=== PATIENT | male | born 1950 | race Caucasian/White ===

== ENCOUNTER 2017-06-22 19:06 | Inpatient (IN) | payer OTHER ==
[~2017-06-22] VITALS: Ht 188 cm; Wt 125.0 kg
[2017-06-22 19:15] VITALS: BP 132/60; PULSE 85; RESP 20; TEMP 103.6; O2SAT 100
[2017-06-22 19:30] VITALS: RESP 22; O2SAT 100
[2017-06-22] MEDS ORDERED: SODIUM CHLORID 0.9% 500 ML INJ 500 ML IV ONE (19:30)
[2017-06-22] MEDS ORDERED: ONDANSETRON HCL 4 MG/2 ML VIAL IV PUSH ONE (19:30)
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
--- NOTE | 2017-06-22 20:13 | RADRPT ---
EXAM DATE/TIME: 06/22/2017 19:46 [facility] COMPARISON: No previous studies available for comparison. INDICATIONS : Short of breath. MEDICAL HISTORY : None. SURGICAL HISTORY : None. ENCOUNTER: Initial ACUITY: 1 day PAIN SCORE: 0/10 LOCATION: Bilateral chest FINDINGS: Suspected mild infiltrate in the right upper lobe. Lungs otherwise appear reasonably clear. No pleura l effusion demonstrated. No pneumothorax. Heart size within normal limits. Patient has had previous median sternotomy and CABG. CONCLUSION: Suspected early or mild right upper lobe infiltrate in the proper clinical setting. Rusty Garcia MD on June 22, 2017 at 20:11 Board Certified Radiologist. This report was verified electronically.
[2017-06-22 20:28] LABS: AUTOMATED NEUTROPHIL # 6.6 TH/MM3 (1.8-7.7); BASOPHIL % 0.1 % (0.0-2.0); EOSINOPHIL % 0.1 % (0.0-4.0); HEMATOCRIT 39.7 % (39.0-51.0); HEMO FLAGS DIFF FINAL; LYMPH % 6.2 % (9.0-44.0); LYMPHOCYTE # 0.5 TH/MM3 (1.0-4.8); MEAN CELL VOLUME 91.9 FL (80.0-100.0); MEAN CORPUSCULAR HEMOGLOBIN 30.6 PG (27.0-34.0); MEAN CORPUSCULAR HGB CONC 33.3 % (32.0-36.0); MONO % 10.8 % (0.0-8.0); NEUT % 82.8 % (16.0-70.0); PLATELET COUNT 104 TH/MM3 (150-450); RED BLOOD COUNT 4.32 MIL/MM3 (4.50-5.90); RED CELL DISTRIBUTION WIDTH 13.8 % (11.6-17.2)
[2017-06-22 20:31] LABS: APTT (PATIENT) 31.1 SEC (24.3-30.1); INTERNATIONAL NORMALIZED RATIO 1.1 RATIO; PROTHROMBIN TIME - PATIENT 12.6 SEC (9.8-11.6)
[2017-06-22 20:41] LABS: ALT (GPT) 41 U/L (12-78); ANION GAP 9 MEQ/L (5-15); AST (GOT) 58 U/L (15-37); BICARBONATE 22.6 MEQ/L (21.0-32.0); BLOOD UREA NITROGEN 9 MG/DL (7-18); CHLORIDE 107 MEQ/L (98-107); GLOMERULAR FILTRATION RATE 112 ML/MIN (>89); MAGNESIUM 1.5 MG/DL (1.5-2.5); POTASSIUM 3.8 MEQ/L (3.5-5.1); SODIUM (NA) 139 MEQ/L (136-145)
[2017-06-22] MEDS ORDERED: AZTREONAM INJ 2,000 MG in SODIUM CHLORIDE 0.9% INJ 100 ML IV ONE (20:45)
[2017-06-22] MEDS ORDERED: metroNIDAZOLE 500 MG INJ 100 ML IV ONE (20:45)
[2017-06-22] MEDS ORDERED: VANCOMYCIN INJ 1,000 MG in SODIUM CHLOR 0.9% 250 ML INJ 250 ML IV ONE (20:45)
[2017-06-22 20:50] LABS: ACETAMINOPHEN LESS THAN 2.0 MCG/ML (10.0-30.0); ALKALINE PHOSPHATASE 123 U/L (45-117); TOTAL BILIRUBIN ADULT 0.5 MG/DL (0.2-1.0)
[2017-06-22 20:54] LABS: ALCOHOL LESS THAN 3 MG/DL (0-5); CREATINE KINASE 100 U/L (39-308)
--- NOTE | 2017-06-22 21:07 | RADRPT ---
EXAM DATE/TIME: 06/22/2017 20:46 [facility] COMPARISON: No previous studies available for comparison. INDICATIONS : Altered mental status, found with generator running. RADIATION DOSE: 69.15 CTDIvol (mGy) MEDICAL HISTORY : Cardiovascular disease. A-fib SURGICAL HISTORY : CABG ENCOUNTER: Initial ACUITY: 1 day PAIN SCALE: 0/10 LOCATION: cranial TECHNIQUE: Multiple contiguous axial images were obtained of the head. Using automated exposure control and adj ustment of the mA and/or kV according to patient size, radiation dose was kept as low as reasonably a chievable to obtain optimal diagnostic quality images. DICOM format image data is available electro nically for review and comparison. FINDINGS: CEREBRUM: The ventricles are normal for age. No evidence of midline shift, mass lesion, hemorrhage or acute in farction. No extra-axial fluid collections are seen. POSTERIOR FOSSA: The cerebellum and brainstem are intact. The 4th ventricle is midline. The cerebellopontine angle i s unremarkable. EXTRACRANIAL: The visualized portion of the orbits is intact. SKULL: The calvaria is intact. No evidence of skull fracture. CONCLUSION: Negative noncontrast head CT. Rusty Garcia MD on June 22, 2017 at 21:05 Board Certified Radiologist. This report was verified electronically.
[2017-06-22] MEDS ORDERED: SODIUM CHLOR 0.9% 1000 ML INJ 1,000 ML IV ONE (21:15)
[2017-06-22] MEDS ORDERED: ACETAMINOPHEN 325 MG TAB PO ONE (21:15)
[2017-06-22] MEDS ORDERED: LACTULOSE SYRUP 20 GM/30 ML CUP PO ONE (21:30)
[2017-06-22] MEDS ORDERED: NALOXONE HCL 0.4 MG/ML AMP IV PRN (21:30)
[2017-06-22] MEDS ORDERED: Vancomycin Consult Pharmacy 1 EA OTHER SCH (21:30)
[2017-06-22 21:42] LABS: BLOOD GAS BASE EXCESS -1.9 mmol/L (-2-2); BLOOD GAS CARBOXYHEMOGLOBIN 3.4 % (0-4); BLOOD GAS HCO3 22 mmol/L (22-26); BLOOD GAS METHEMOGLOBIN 0.7 % (0-2); BLOOD GAS O2 HGB SATURATION 96 % (90-100); BLOOD GAS OXYGEN CONTENT 18.1 Vol % (12.0-20.0); BLOOD GAS PCO2 33 mmHg (38-42); BLOOD GAS PO2 225 mmHG (61-120); BLOOD GAS TOTAL HGB 13.1 G/DL (12.0-16.0); TEMP CORR TO 98.6
[2017-06-22 21:43] LABS: CRITICAL VALUE NO; DRAW SITE RT RADIAL; LITER FLOW 15 L/M; NUMBER OF ARTERIAL PUNCTURES 1; OXYGEN DEVICE NONREB MASK; STAT YES; ULNAR PULSE PRESENT
[2017-06-22] MEDS ORDERED: VANCOMYCIN 1,500 MG/NS 500 ML IV ONE ×2 (22:00)
[2017-06-22 22:12] LABS: LACTIC ACID GHOST NOT REPORTABLE
[2017-06-22 22:40] VITALS: BP 116/55; PULSE 65; TEMP 99.7; O2SAT 96
[2017-06-23] MEDS ORDERED: MORPHINE SULFATE 2 MG/ML INJ IV PUSH PRN
[2017-06-23] MEDS ORDERED: PERC10TA27 PO (00:07)
[2017-06-23] MEDS ORDERED: CARAFATE (00:07)
[2017-06-23] MEDS ORDERED: DILATIN (00:07)
[2017-06-23 00:16] VITALS: BP 116/53; PULSE 63; RESP 20; TEMP 100; O2SAT 95
--- NOTE | 2017-06-23 00:48 | HHI.HP ---
[facility] Unknown Admission Diagnosis Febrile Illness, hepatic encephalopathy, sepsis, pneumonia Diagnoses: Travel History International Travel<30 Days: No Contact w/Intl Traveler <30 Da: No Traveled to Known Affected Are: No History of Present Illness History from patient, physician to medication, and review of medical records. Patient reports that he . He stated he was having some nausea and vomiting as well. He called his friend because of this. When the friend arrived, patient was having active vomiting and also did have diarrhea about once or twice. The friend got worried and therefore called 911. He states that he did not have any urinary burning or pain on urination. Denies any blood in his urine or stool. He reports the diarrhea was just once or twice and only today. Not several days. He denies any chest pain/palpitations/shortness of breath/dizziness/syncopal episodes. In the emergency room, it was initially thought that patient may have, nontoxic poisoning. However his ABG proved otherwise. Patient states that he did have carbon monoxide generator in the outdoors and open air. Review of Systems Except as stated in HPI: all other systems reviewed are Neg Past Family Social History Past Medical History Hypertension Diabetes CAD status post CABG Atrial fibrillation Hyperlipidemia Chronic back pain Past Surgical History CABG Back surgeries 3 Reported Medications Medications listed in EMRreviewed. Patient states he did go through with nursing staff. Allergies: Coded Allergies: Penicillins (Verified Allergy, Unknown, 06/22/17) shellfish derived (Verified Allergy, Unknown, 06/22/17) Family History dm, heart problems in the family Social History Denies smoking/alcohol abuse/drug abuse. Physical Exam Vital Signs Vital Signs Date Time Temp Pulse Resp B/P (MAP) Pulse Ox O2 Delivery O2 Flow Rate FiO2 06/23/17 00:16 100.0 63 20 116/53 (74) 95 06/22/17 22:40 99.7 65 116/55 (75) 96 Nasal Cannula 2.00 06/22/17 19:30 22 100 Non-Rebreather 15.00 06/22/17 19:26 72 20 100 Non-Rebreather 06/22/17 19:15 103.6 85 20 132/60 (84) 100 Physical Exam GENERAL: This is a well-nourished, well-developed patient, in no apparent distress. SKIN: No rashes, ecchymoses or lesions. Cool and dry. HEAD: Atraumatic. Normocephalic. No temporal or scalp tenderness. EYES: No scleral icterus. No injection or drainage. ENT: Nose without bleeding, purulent drainage or septal hematoma. Airway patent. NECK: Trachea midline. No JVD CARDIOVASCULAR: Regular rate and rhythm without murmurs, gallops, or rubs. RESPIRATORY: Clear to auscultation. Breath sounds equal bilaterally. No wheezes , rales, or rhonchi. GASTROINTESTINAL: Abdomen soft, non-tender, nondistended. No guarding. MUSCULOSKELETAL: Extremities without clubbing, cyanosis, or edema. No calf tenderness. NEUROLOGICAL: Awake and alert. Motor and sensory grossly within normal limits. Normal speech. Laboratory Laboratory Tests Test 06/22/17 19:20 06/22/17 19:30 06/22/17 19:50 06/22/17 22:30 Lactic Acid Level 3.1 2.3 Ammonia 50 White Blood Count 8.0 Red Blood Count 4.32 Hemoglobin 13.2 Hematocrit 39.7 Mean Corpuscular Volume 91.9 Mean Corpuscular Hemoglobin 30.6 Mean Corpuscular Hemoglobin Concent 33.3 Red Cell Distribution Width 13.8 Platelet Count 104 Mean Platelet Volume 10.3 Neutrophils (%) (Auto) 82.8 Lymphocytes (%) (Auto) 6.2 Monocytes (%) (Auto) 10.8 Eosinophils (%) (Auto) 0.1 Basophils (%) (Auto) 0.1 Neutrophils # (Auto) 6.6 Lymphocytes # (Auto) 0.5 Monocytes # (Auto) 0.9 Eosinophils # (Auto) 0.0 Basophils # (Auto) 0.0 CBC Comment DIFF FINAL Differential Comment Prothrombin Time 12.6 Prothromb Time International Ratio 1.1 Activated Partial Thromboplast Time 31.1 Blood Urea Nitrogen 9 Creatinine 0.62 Random Glucose 182 Total Protein 6.6 Albumin 2.6 Calcium Level 8.3 Magnesium Level 1.5 Alkaline Phosphatase 123 Aspartate Amino Transf (AST/SGOT) 58 Alanine Aminotransferase (ALT/SGPT) 41 Total Bilirubin 0.5 Sodium Level 139 Potassium Level 3.8 Chloride Level 107 Carbon Dioxide Level 22.6 Anion Gap 9 Estimat Glomerular Filtration Rate 112 Total Creatine Kinase 100 Troponin I LESS THAN 0.02 C-Reactive Protein 0.71 B-Type Natriuretic Peptide 150 Lipase 230 Thyroid Stimulating Hormone 3rd Gen 0.713 Salicylates Level LESS THAN 1.7 Acetaminophen Level LESS THAN 2.0 Ethyl Alcohol Level LESS THAN 3 Blood Gas Puncture Site RT RADIAL Blood Gas Patient Temperature 98.6 Blood Gas HCO3 22 Blood Gas Base Excess -1.9 Blood Gas Oxygen Saturation 96 Arterial Blood pH 7.43 Arterial Blood Partial Pressure CO2 33 Arterial Blood Partial Pressure O2 225 Arterial Blood Oxygen Content 18.1 Arterial Blood Carboxyhemoglobin 3.4 Arterial Blood Methemoglobin 0.7 Blood Gas Hemoglobin 13.1 Oxygen Delivery Device NONREB MASK Blood Gas Liter Flow 15 Date/Time Source Procedure Growth Status 06/22/17 19:35 Blood Peripheral Aerobic Blood Culture Pending Received 06/22/17 19:35 Blood Peripheral Anaerobic Blood Culture Pending Received Result Diagram: 06/22/17192906/22/171929 Imaging Last [address] 06/22/171925 Signed Impressions: Service Date/Time: Thursday, June 22, 2017 20:46 - CONCLUSION: Negative noncontrast head CT. Rusty Garcia MD Chest X-Ray 06/22/171925 Signed Impressions: Service Date/Time: Thursday, June 22, 2017 19:46 - CONCLUSION: Suspected early or mild right upper lobe infiltrate in the proper clinical setting. MD Jose Clearyi VTE Risk Assessment Caprini VTE Risk Assessment: Mod/High Risk (score >= 2) Caprini Risk Assessment Model Point Value = 1 Point Value = 2 Point Value = 3 Point Value = 5 Age 41-60 Minor surgery BMI > 25 kg/m2 Swollen legs Varicose veins or History of unexplained or recurrent spontaneous Oral contraceptives or hormone replacement Sepsis (< 1 month) Serious lung disease, including pneumonia (< 1 month) Abnormal pulmonary function Acute myocardial infarction Congestive heart failure (< 1 month) History of inflammatory bowel disease Medical patient at bed rest Age 61-74 Arthroscopic surgery Major open surgery (> 45 min) Laparoscopic surgery (> 45 min) Malignancy Confined to bed (> 72 hours) Immobilizing plaster cast Central venous access Age >= 75 History of VTE Family history of VTE Factor V Leiden Prothrombin [id number] Lupus anticoagulant Anticardiolipin antibodies Elevated serum homocysteine Heparin-induced thrombocytopenia Other congenital or acquired thrombophilia Stroke (< 1 month) Elective arthroplasty Hip, pelvis, or leg fracture Acute spinal cord injury (< 1 month) Prophylaxis Regimen Total Risk Factor Score Risk Level Prophylaxis Regimen 0-1 Low Early ambulation 2 Moderate Order ONE of the following: *Sequential Compression Device (SCD) *Heparin 5000 units SQ BID 3-4 Higher Order ONE of the following medications: *Heparin 5000 units SQ TID *Enoxaparin/Lovenox 40 mg SQ daily (WT < 150 kg, CrCl > 30 mL/min) *Enoxaparin/Lovenox 30 mg SQ daily (WT < 150 kg, CrCl > 10-29 mL/min) *Enoxaparin/Lovenox 30 mg SQ BID (WT < 150 kg, CrCl > 30 mL/min) AND/OR *Sequential Compression Device (SCD) 5 or more Highest Order ONE of the following medications: *Heparin 5000 units SQ TID (Preferred with Epidurals) *Enoxaparin/Lovenox 40 mg SQ daily (WT < 150 kg, CrCl > 30 mL/min) *Enoxaparin/Lovenox 30 mg SQ daily (WT < 150 kg, CrCl > 10-29 mL/min) *Enoxaparin/Lovenox 30 mg SQ BID (WT < 150 kg, CrCl > 30 mL/min) AND *Sequential Compression Device (SCD) Assessment and Plan Assessment and Plan Impression: Gastritis/enteritis- infectious Viral versus pneumonia Fever Suspected bacteremia Thrombocytopenia Lactic acid acidosis Plan: IV hydration. We'll follow blood culture results. Continue vancomycin and Azactam until cultures are resulted and will tailored to sensitivity and identity. [facility] Again, there is no evidence of carbon monoxide poisoning. His lethargy is secondary to infection. DVT prophylaxiswith SCD . GI prophylaxis, SCDs. Discussed Condition With ;patient, ER MD, pt's nurse Physician Certification 2 Midnight Certification Type: Admission for Inpatient Services Order for Inpatient Services The services are ordered in accordance with Medicare regulations or non- Medicare payer requirements, as applicable. In the case of services not specified as inpatient-only, they are appropriately provided as inpatient services in accordance with the 2-midnight benchmark. Estimated LOS (days): 3 days is the estimated time the patient will need to remain in the hospital, assuming treatment plan goals are met and no additional complications. Post-Hospital Plan: Home Saturnino Walker MD Jun 23, 2017 00:48
[2017-06-23] MEDS ORDERED: ACETAMINOPHEN 325 MG TAB PO PRN (01:00)
[2017-06-23] MEDS: MORPHINE SULFATE 4 MG/ML INJ IV PUSH PRN ×7 (01:02→22:44)
[2017-06-23 04:00] VITALS: TEMP 100.4
[2017-06-23] MEDS: VANCOMYCIN INJ 1,600 MG in SODIUM CHLORID 0.9% 500 ML INJ 500 ML IV SCH ×3 (05:19→22:44)
[2017-06-23 08:00] VITALS: BP 116/56; PULSE 61; RESP 18; TEMP 98.8; O2SAT 95
[2017-06-23 08:09] LABS: AUTOMATED NEUTROPHIL # 5.8 TH/MM3 (1.8-7.7); BASOPHIL % 0.2 % (0.0-2.0); EOSINOPHIL % 0.1 % (0.0-4.0); HEMATOCRIT 36.1 % (39.0-51.0); LYMPHOCYTE # 1.3 TH/MM3 (1.0-4.8); MEAN CELL VOLUME 91.4 FL (80.0-100.0); MONO % 11.2 % (0.0-8.0); NEUT % 72.5 % (16.0-70.0); PLATELET COUNT 83 TH/MM3 (150-450); RED BLOOD COUNT 3.95 MIL/MM3 (4.50-5.90); RED CELL DISTRIBUTION WIDTH 14.3 % (11.6-17.2)
[2017-06-23 08:14] LABS: HEMO FLAGS AUTO DIFF
[2017-06-23 08:34] LABS: BICARBONATE 24.6 MEQ/L (21.0-32.0); POTASSIUM 3.5 MEQ/L (3.5-5.1)
[2017-06-23 08:52] LABS: PLATELET ESTIMATE SMEAR LOW (NORMAL); PLATELET MORPHOLOGY NORMAL (NORMAL); SCAN/DIFF AUTO DIFF CONFIRMED
[2017-06-23] MEDS: AZTREONAM INJ 2,000 MG in SODIUM CHLORIDE 0.9% INJ 100 ML IV SCH ×2 (09:06→19:43)
[2017-06-23] MEDS: SODIUM CHLORIDE 0.9% FLUSH 10 ML FLUSH IV FLUSH SCH ×2 (09:06→19:42)
[2017-06-23] MEDS: SODIUM CHLORIDE 0.9% FLUSH 10 ML FLUSH IV FLUSH PRN ×2 (09:47→12:44)
[2017-06-23 12:00] VITALS: BP 125/69; PULSE 64; RESP 17; TEMP 98.9; O2SAT 95
[2017-06-23] MEDS ORDERED: MORP1TAB25 PO (13:18)
[2017-06-23] MEDS ORDERED: NITR0.4S SL (13:19)
[2017-06-23] MEDS ORDERED: METO25TA3 PO (13:20)
[2017-06-23] MEDS ORDERED: FURO20TA PO (13:21)
[2017-06-23] MEDS ORDERED: FLUO20CA12 PO (13:21)
[2017-06-23] MEDS ORDERED: PRAV40TA2 PO (13:24)
[2017-06-23] MEDS ORDERED: PRAM0.5T PO (13:24)
[2017-06-23] MEDS ORDERED: GLIP10TA6 PO (13:26)
[2017-06-23] MEDS ORDERED: SUCR1TAB PO (13:27)
[2017-06-23 16:00] VITALS: BP 158/66; PULSE 56; RESP 17; TEMP 97.5; O2SAT 95
[2017-06-23] MEDS ORDERED: SODIUM CHLOR 0.9% 1000 ML INJ 1,000 ML IV SCH (17:00)
--- NOTE | 2017-06-23 17:01 | HHI.PR ---
Subjective Remarks Patient denied any cough or short of breath He does have tenderness in his left lower extremity with redness, he stated he has been getting cellulitis in it since he had heart surgery Questionable dysuria, will check UA, it was ordered from ED but hasn't been out yet Objective Vitals Vital Signs Date Time Temp Pulse Resp B/P (MAP) Pulse Ox O2 Delivery O2 Flow Rate FiO2 06/23/17 16:00 97.5 56 17 158/66 (96) 95 06/23/17 12:48 18 06/23/17 12:00 98.9 64 17 125/69 (87) 95 06/23/17 08:00 98.8 61 18 116/56 (76) 95 06/23/17 04:00 100.4 06/23/17 00:16 100.0 63 20 116/53 (74) 95 06/22/17 22:40 99.7 65 116/55 (75) 96 Nasal Cannula 2.00 06/22/17 19:30 22 100 Non-Rebreather 15.00 06/22/17 19:26 72 20 100 Non-Rebreather 06/22/17 19:15 103.6 85 20 132/60 (84) 100 I/O 06/22/17 06/22/17 06/22/17 06/23/17 06/23/17 06/23/17 07:00 15:00 23:00 07:00 15:00 23:00 Intake Total 500 ml 240 ml Output Total 300 ml Balance 500 ml -60 ml Intake Oral 240 ml IV Total 500 ml Output Urine Total 300 ml # Bowel Movements 0 Result Diagram: 06/23/17 0744 06/23/17 0744 Objective Remarks GENERAL: This is a well-nourished, well-developed patient, in no apparent distress. SKIN: No rashes, warm and dry HEAD: Atraumatic. Normocephalic. EYES: Pupils equal round and reactive. Extraocular motions intact. No scleral icterus. ENT: Nose without bleeding, or drainage, Airway patent. NECK: Trachea midline. Supple CARDIOVASCULAR: Regular rate and rhythm without murmurs, gallops, or rubs. RESPIRATORY: Fair air entry bilaterally. No wheezes, rales, or rhonchi. GASTROINTESTINAL: Abdomen soft, non-tender, nondistended. Positive bowel sounds MUSCULOSKELETAL: Left lower extremity with tenderness, redness and warmth, I marked the redness NEUROLOGICAL: Awake and alert. Moves all extremity. Normal speech.no focal neurological deficit A/P Assessment and Plan Febrile illness max 103.6, then 100.4 with left shift without leukocytosis, chest x-ray showed right basilar haziness rule out pneumonia versus bilateral gastroenteritis versus cellulitis Suspect left lower extremity cellulitis Suspected bacteremia Thrombocytopenia Lactic acid acidosis> level today pending Plan: We'll continue with 500 cc of normal saline at 60 cc/h follow blood culture results. Ordered UA Continue vancomycin and Azactam until cultures are resulted and will tailored to sensitivity and identity. Monitor erythema and tenderness on the left lower extremity [facility]. DVT prophylaxiswith SCD Ronna Uriostegui MD Jun 23, 2017 17:01
[2017-06-23] MEDS ORDERED: Vancomycin Consult Pharmacy 1 EA OTHER SCH (17:15)
[2017-06-23 18:49] LABS: BACTERIA, URINE OCC /hpf; BLOOD, URINE NEG (NEG); COMMENT (UR) CULT NOT INDICATED; CULTURE IF INDICATED CULT NOT INDICATED; GLUCOSE,URINE NEG (NEG); KETONE, URINE NEG (NEG); MUCUS URINE FEW /lpf (OCC); NITRITE,URINE NEG (NEG); SQUAMOUS EPITHELIAL CELL URINE 1 /hpf (0-5); URINE COLOR YELLOW (YELLW/STRAW)
[2017-06-23 20:00] VITALS: BP 144/71; PULSE 50; PULSE 51; RESP 19; TEMP 95.8; O2SAT 99
[2017-06-23] MEDS: SUCRALFATE 1 GM TAB PO SCH (20:58)
[2017-06-23] MEDS: PRAMIPEXOLE DIHYDROCHLORIDE 0.25 MG TAB PO SCH (20:58)
[2017-06-23] MEDS: FLUoxetine HCL 20 MG CAP PO SCH (20:58)
[2017-06-23] MEDS: oxyCODONE/ACETAMINOPHEN 10 MG/325 MG TAB PO PRN (20:59)
--- NOTE | 2017-06-23 21:36 | EKG ---
Date Performed: 06/22/2017 Time Performed: 19:16:29 PTAGE: 89 years EKG: Sinus rhythm INCOMPLETE RIGHT BUNDLE BRANCH BLOCK NONSPECIFIC T-WAVE ABNORMALITY BORDERLINE ECG NO PREVIOUS TRACING DOCTOR: Monica Partida Interpretating Date/Time 06/23/2017 21:35:50
[2017-06-24] VITALS: BP 123/70; PULSE 68; RESP 17; TEMP 96; O2SAT 100
[2017-06-24] MEDS: oxyCODONE/ACETAMINOPHEN 10 MG/325 MG TAB PO PRN ×6 (00:54→23:48)
[2017-06-24] MEDS: MORPHINE SULFATE 4 MG/ML INJ IV PUSH PRN ×6 (01:44→16:24)
[2017-06-24] MEDS: VANCOMYCIN INJ 1,600 MG in SODIUM CHLORID 0.9% 500 ML INJ 500 ML IV SCH ×3 (05:52→21:52)
[2017-06-24 08:00] VITALS: BP 157/70; PULSE 53; RESP 18; TEMP 97.7; O2SAT 94
[2017-06-24] MEDS: AZTREONAM INJ 2,000 MG in SODIUM CHLORIDE 0.9% INJ 100 ML IV SCH (08:03)
[2017-06-24] MEDS: FLUoxetine HCL 20 MG CAP PO SCH ×2 (08:03→19:44)
[2017-06-24] MEDS: SODIUM CHLORIDE 0.9% FLUSH 10 ML FLUSH IV FLUSH SCH ×2 (08:03→19:46)
[2017-06-24] MEDS: SUCRALFATE 1 GM TAB PO SCH ×4 (08:03→19:44)
[2017-06-24 09:31] LABS: AUTOMATED NEUTROPHIL # 4.1 TH/MM3 (1.8-7.7); BASOPHIL % 0.4 % (0.0-2.0); EOSINOPHIL # 0.3 TH/MM3 (0-0.4); EOSINOPHIL % 4.2 % (0.0-4.0); HEMATOCRIT 37.6 % (39.0-51.0); LYMPH % 20.6 % (9.0-44.0); LYMPHOCYTE # 1.3 TH/MM3 (1.0-4.8); MEAN CELL VOLUME 92.1 FL (80.0-100.0); MEAN CORPUSCULAR HEMOGLOBIN 31.4 PG (27.0-34.0); MEAN CORPUSCULAR HGB CONC 34.1 % (32.0-36.0); MONO % 10.7 % (0.0-8.0); NEUT % 64.1 % (16.0-70.0); PLATELET COUNT 77 TH/MM3 (150-450); RED BLOOD COUNT 4.09 MIL/MM3 (4.50-5.90); WHITE BLOOD COUNT 6.3 TH/MM3 (4.0-11.0)
[2017-06-24 09:38] LABS: HEMO FLAGS AUTO DIFF
[2017-06-24 09:47] LABS: BICARBONATE 23.2 MEQ/L (21.0-32.0); POTASSIUM 3.4 MEQ/L (3.5-5.1)
[2017-06-24] MEDS: ONDANSETRON HCL 4 MG/2 ML VIAL IV PUSH PRN ×3 (10:23→23:48)
[2017-06-24 10:38] LABS: SCAN/DIFF AUTO DIFF CONFIRMED
[2017-06-24 12:00] VITALS: BP 148/69; PULSE 58; RESP 18; TEMP 98.1; O2SAT 95
[2017-06-24] MEDS ORDERED: PHARMACY ORDERED LAB ONE (13:45)
--- NOTE | 2017-06-24 18:57 | HHI.PR ---
Subjective Remarks Patient reported feeling nauseous when he started to eat today, complain of severe back pain and that he needs his morphine 30 mg 3 times a day No cough or fever, no phlegm production, no clinical signs of pneumonia Left lower extremity warmth and redness improved since yesterday, patient is on Vanco Rocephin and Zithromax Objective Vitals Vital Signs Date Time Temp Pulse Resp B/P (MAP) Pulse Ox O2 Delivery O2 Flow Rate FiO2 06/24/17 12:00 98.1 58 18 148/69 (95) 95 06/24/17 08:00 97.7 53 18 157/70 (99) 94 06/24/17 05:58 18 06/24/17 05:51 18 06/24/17 00:00 96.0 68 17 123/70 (87) 100 06/23/17 20:00 95.8 51 19 144/71 (95) 99 06/23/17 20:00 50 I/O 06/23/17 06/23/17 06/23/17 06/24/17 06/24/17 06/24/17 07:00 15:00 23:00 07:00 15:00 23:00 Intake Total 240 ml 736 ml 756 ml 616 ml 120 ml Output Total 300 ml 700 ml 350 ml 225 ml Balance -60 ml 36 ml 406 ml 616 ml -105 ml Intake Oral 240 ml 120 ml 240 ml 120 ml IV Total 616 ml 516 ml 616 ml Output Urine Total 300 ml 700 ml 350 ml 225 ml # Bowel Movements 0 2 0 Result Diagram: 06/24/1790606/24/17906 Objective Remarks GENERAL: This is a well-nourished, well-developed patient, in no apparent distress. SKIN: No rashes, warm and dry HEAD: Atraumatic. Normocephalic. EYES: Pupils equal round and reactive. Extraocular motions intact. No scleral icterus. ENT: Nose without bleeding, or drainage, Airway patent. NECK: Trachea midline. Supple CARDIOVASCULAR: Regular rate and rhythm without murmurs, gallops, or rubs. RESPIRATORY: Fair air entry bilaterally. No wheezes, rales, or rhonchi. GASTROINTESTINAL: Abdomen soft, non-tender, nondistended. Positive bowel sounds MUSCULOSKELETAL: Left lower extremity with tenderness, redness and warmth, the marked redness looks better today NEUROLOGICAL: Awake and alert. Moves all extremity. Normal speech.no focal neurological deficit A/P Assessment and Plan Febrile illness max 103.6, then 100.4 with left shift without leukocytosis, chest x-ray showed right basilar haziness rule out pneumonia versus bilateral gastroenteritis versus cellulitis Suspect left lower extremity cellulitis Suspected bacteremia Thrombocytopenia, with mild increased PT and PTT> unknown reason possible underlying chronic ITP, rule out DIC Lactic acid acidosis> level today pending DVT prophylaxis, SCD due to thrombocytopenia Plan: DC Vanco and Azactam, start clindamycin iv, monitor blood culture no growth so far. Negative UA Monitor erythema and tenderness on the left lower extremity Will do workup for thrombus cytopenia rule out DIC> fibrinogen, fibrin degradation level, d-dimer, CBC in a.m., Also check urine Legionella and pneumococcus antigen [facility]. DVT prophylaxiswith SCD Discharge Planning Home with by mouth antibiotics in a.m. if all the workup is negative Ronna Uriostegui MD Jun 24, 2017 18:57
[2017-06-24] MEDS: PRAVASTATIN SOD 40 MG TAB PO SCH (19:45)
[2017-06-24] MEDS: PRAMIPEXOLE DIHYDROCHLORIDE 0.25 MG TAB PO SCH (19:45)
[2017-06-24 20:00] VITALS: BP 174/81; PULSE 57; RESP 20; TEMP 96.1; O2SAT 96
[2017-06-24] MEDS: CLINDAMYCIN INJ 600 MG in SODIUM CHLORIDE 0.9% INJ 100 ML IV SCH (21:00)
--- NOTE | 2017-06-24 21:44 | RADRPT ---
EXAM DATE/TIME: 06/24/2017 21:20 [facility] COMPARISON: CHEST SINGLE AP, June 22, 2017, 19:46. INDICATIONS : Evaluate for pneumonia. MEDICAL HISTORY : None. SURGICAL HISTORY : CABG. ENCOUNTER: Subsequent ACUITY: 2 days PAIN SCORE: 0/10 LOCATION: Bilateral chest FINDINGS: Still possibly some faint infiltrate in the right upper lobe. Otherwise lungs are clear. No pleural e ffusion or pneumothorax. CONCLUSION: Still faintly opacified right upper lobe. Rusty Garcia MD on June 24, 2017 at 21:42 Board Certified Radiologist. This report was verified electronically.
[2017-06-24] MEDS: MORPHINE SULFATE 30 MG TAB PO SCH (23:00)
[2017-06-25] VITALS: BP 150/68; PULSE 54; RESP 19; TEMP 98.5; O2SAT 93
[2017-06-25] MEDS: MORPHINE SULFATE 4 MG/ML INJ IV PUSH PRN ×4 (01:35→18:26)
[2017-06-25] MEDS: CLINDAMYCIN INJ 600 MG in SODIUM CHLORIDE 0.9% INJ 100 ML IV SCH ×2 (03:42→09:27)
[2017-06-25] MEDS: oxyCODONE/ACETAMINOPHEN 10 MG/325 MG TAB PO PRN ×5 (03:44→22:10)
[2017-06-25 03:53] LABS: BASOPHIL % 0.4 % (0.0-2.0); EOSINOPHIL # 0.3 TH/MM3 (0-0.4); EOSINOPHIL % 4.2 % (0.0-4.0); HEMATOCRIT 36.6 % (39.0-51.0); LYMPH % 24.1 % (9.0-44.0); LYMPHOCYTE # 1.6 TH/MM3 (1.0-4.8); MEAN CORPUSCULAR HEMOGLOBIN 30.7 PG (27.0-34.0); MEAN CORPUSCULAR HGB CONC 33.4 % (32.0-36.0); MONO % 9.3 % (0.0-8.0); PLATELET COUNT 89 TH/MM3 (150-450); RED BLOOD COUNT 3.98 MIL/MM3 (4.50-5.90); WHITE BLOOD COUNT 6.4 TH/MM3 (4.0-11.0)
[2017-06-25 03:55] LABS: HEMO FLAGS AUTO DIFF
[2017-06-25 04:00] VITALS: BP 147/74; PULSE 63; RESP 20; TEMP 97.3; O2SAT 92
[2017-06-25 04:01] LABS: PLATELET ESTIMATE SMEAR LOW (NORMAL); PLATELET MORPHOLOGY NORMAL (NORMAL); SCAN/DIFF AUTO DIFF CONFIRMED
[2017-06-25] MEDS: MORPHINE SULFATE 30 MG TAB PO SCH ×3 (04:05→22:06)
[2017-06-25] MEDS: VANCOMYCIN INJ 1,600 MG in SODIUM CHLORID 0.9% 500 ML INJ 500 ML IV SCH ×2 (05:52→13:30)
[2017-06-25 08:00] VITALS: BP 156/73; PULSE 65; RESP 17; TEMP 96.8; O2SAT 92
[2017-06-25] MEDS: SUCRALFATE 1 GM TAB PO SCH ×4 (09:27→22:07)
[2017-06-25] MEDS: FLUoxetine HCL 20 MG CAP PO SCH ×2 (09:27→22:08)
[2017-06-25] MEDS: FUROSEMIDE 20 MG TAB PO SCH (09:27)
[2017-06-25] MEDS: SODIUM CHLORIDE 0.9% FLUSH 10 ML FLUSH IV FLUSH SCH ×2 (09:27→22:10)
[2017-06-25] MEDS: LACTOBACILLUS ACIDOPHILUS TAB PO SCH ×3 (09:27→17:44)
[2017-06-25] MEDS: glipiZIDE 10 MG TAB PO SCH ×3 (09:32→17:00)
[2017-06-25 12:00] VITALS: BP 156/74; PULSE 61; RESP 17; TEMP 97.2; O2SAT 94
--- NOTE | 2017-06-25 13:17 | RADRPT ---
EXAM DATE/TIME: 06/25/2017 11:55 [facility] COMPARISON: No previous studies available for comparison. INDICATIONS : Left leg pain. MEDICAL HISTORY : Hypertension. Diabetes. Coronary artery disease. SURGICAL HISTORY : CABG. Atrial fibrillation. ENCOUNTER: Initial ACUITY: 1 day PAIN SCORE: 0/10 LOCATION: Left leg. TECHNIQUE: Venous ultrasound of the leg was performed from the inguinal ligament to the proximal calf. Real-violeta e, color Doppler and spectral tracing, compression and augmentation techniques were used. FINDINGS: There is normal compressibility of the deep venous system from the inguinal region to the proximal ca lf. No echogenic clot is seen in the lumen of the common femoral, femoral, popliteal, and posterior tibial veins. There is a normal response of the venous system to proximal and distal augmentation an d respiration. CONCLUSION: Normal examination. Rusty Lane MD on June 25, 2017 at 13:16 Board Certified Radiologist. This report was verified electronically.
--- NOTE | 2017-06-25 13:22 | PD.CONS ---
History of Present Illness Service Infectious disease Consult Requested By Dr Fabiana Uriostegui Reason for Consult Evaluate patient admitted with fever, possible aspiration, has redness in his left lower extremity Primary Care Physician Unknown Diagnoses: History of Present Illness Patient seen and examined. Records reviewed. Patient is a 66-year-old male, presented to the hospital complaining of not feeling well. He apparently has been using his generator, and he was feeling his usual self, when out by some fuel to put in his generator. He came home and took a nap. When he woke up he didn't feel well and he had nausea and vomiting as well as some episode of diarrhea. He apparently didn't look good sinus friend called 911 and the patient was brought into the hospital for further evaluation and treatment. His temperature was up to 103 at that time. He has not had any urinary complaint, no chest pain or any respiratory complaint as far as coughing or chest congestion. His chest x-ray showed some opacity in the right upper lobe. His WBC is normal. ABG did not show any acidosis. There was also some mild erythema on his left leg that was noted, but the patient states that he has had this on and off and it usually would resolve on its own, and this is in the leg were they harvested the vein or vein grafting for his CABG. Patient currently remains afebrile. He has no further nausea vomiting or diarrhea. Blood cultures are negative. Infectious disease consultation has been requested to evaluate the patient. Review of Systems Constitutional: COMPLAINS OF: Fever, DENIES: Chills, Night Sweats Eyes: DENIES: Eye pain Ears, nose, mouth, throat: DENIES: Nasal discharge, Oral lesions, Throat pain, Sinus Pain Respiratory: DENIES: Cough Cardiovascular: DENIES: Chest pain, Palpitations Gastrointestinal: COMPLAINS OF: Diarrhea, Nausea, Vomiting, DENIES: Abdominal pain, Difficulty Swallowing Genitourinary: DENIES: Dysuria Musculoskeletal: DENIES: Joint pain, Joint Swelling, Back pain Integumentary: DENIES: Rash Neurologic: DENIES: Headache Psychiatric: DENIES: Hallucinations Past Family Social History Allergies: Coded Allergies: Penicillins (Verified Allergy, Unknown, 06/22/17) shellfish derived (Verified Allergy, Unknown, 06/22/17) Past Medical History Hypertension Diabetes CAD status post CABG Atrial fibrillation Hyperlipidemia Chronic back pain Past Surgical History CABG Back surgeries 3 Active Ordered Medications Tylenol Clindamycin Prozac Lasix Glucotrol Lactinex Morphine Zofran Percocet Mirapex Pravachol Carafate Vancomycin Family History Family history of diabetes and heart disease Social History Denies smoking Denies alcohol abuse Denies illicit drug Physical Exam Vital Signs Vital Signs Date Time Temp Pulse Resp B/P (MAP) Pulse Ox O2 Delivery O2 Flow Rate FiO2 06/25/17 12:00 97.2 61 17 156/74 (101) 94 06/25/17 08:00 96.8 65 17 156/73 (100) 92 06/25/17 05:05 18 06/25/17 04:00 97.3 63 20 147/74 (98) 92 06/25/17 01:40 18 06/25/17 00:48 18 06/25/17 00:00 98.5 54 19 150/68 (95) 93 06/24/17 20:00 96.1 57 20 174/81 (112) 96 Physical Exam GENERAL: Patient is a well-nourished, well-developed male, awake and alert, not in respiratory distress. SKIN: Warm and dry. No generalized rash, no ecchymoses and no evidence of embolic lesions. HEAD: Atraumatic. Normocephalic. No temporal wasting, or tenderness. EYES: [place] conjunctiva. No petechia or hemorrhage. Pupils equal, round and reactive to light. Extraocular movements full and intact. No scleral icterus. No injection or drainage. EARS, NOSE AND THROAT: Nose without bleeding or purulent nasal discharge. No sinus tenderness. Mucous membranes pink and moist. No oral lesions noted. No exudate. No oral thrush. NECK: Trachea midline. Supple and not tender, no meningeal signs CARDIOVASCULAR: Regular rate and rhythm. No murmurs, rubs or gallops heard RESPIRATORY: Clear to auscultation. Breath sounds equal bilaterally. No rales , wheezing or rhonchi ABDOMEN: Soft, non-tender, nondistended. Bowel sounds present and normoactive. No guarding. No rebound. No organomegaly. EXTREMITIES: No clubbing, cyanosis, or edema. No joint effusion, has good ROM. No calf tenderness. Well perfused and warm. Has ecchymoses in his L upper leg lateral aspect, no erythema noted NEUROLOGICAL: Awake and alert. Cranial nerves grossly intact. Motor grossly within normal limits. PSYCHIATRIC: Normal affect, calm and cooperative. LINE: No evidence of infection Laboratory Laboratory Tests Test 06/24/17 13:45 06/25/17 02:07 Vancomycin Level Trough 13.3 White Blood Count 6.4 Red Blood Count 3.98 Hemoglobin 12.2 Hematocrit 36.6 Mean Corpuscular Volume 92.0 Mean Corpuscular Hemoglobin 30.7 Mean Corpuscular Hemoglobin Concent 33.4 Red Cell Distribution Width 14.0 Platelet Count 89 Mean Platelet Volume 10.0 Neutrophils (%) (Auto) 62.0 Lymphocytes (%) (Auto) 24.1 Monocytes (%) (Auto) 9.3 Eosinophils (%) (Auto) 4.2 Basophils (%) (Auto) 0.4 Neutrophils # (Auto) 4.0 Lymphocytes # (Auto) 1.6 Monocytes # (Auto) 0.6 Eosinophils # (Auto) 0.3 Basophils # (Auto) 0.0 CBC Comment AUTO DIFF Differential Comment AUTO DIFF CONFIRMED Platelet Estimate LOW Platelet Morphology Comment NORMAL Fibrinogen 253 D-Dimer Quantitative (PE/DVT) 0.91 Date/Time Source Procedure Growth Status 06/22/17 19:35 Blood Peripheral Aerobic Blood Culture - Preliminary NO GROWTH IN 3 DAYS Resulted 06/22/17 19:35 Blood Peripheral Anaerobic Blood Culture - Preliminary NO GROWTH IN 3 DAYS Resulted 06/25/17 07:15 Urine Clean Catch Legionella Antigen - Final Pos For Legionella Antigen Complete 06/25/17 07:15 Urine Clean Catch Streptococcus pneumoniae Antigen (M - Final PRESUMPTIVE NEGATIVE FOR STREPTOCOCCU... Complete Result Diagram: 06/25/17 0207 06/24/17 0907 Imaging RADIOLOGY STUDIES/FILMS REVIEWED Last Impressions Chest X-Ray 06/24/17 0000 Signed Impressions: Service Date/Time: June 21:20 - CONCLUSION: Still faintly opacified right upper lobe. Rusty Garcia MD Head CT 06/22/17 1926 Signed Impressions: Service Date/Time: Thursday, June 22, 2017 20:46 - CONCLUSION: Negative noncontrast head CT. Rusty Garcia MD Assessment and Plan Assessment and Plan IMPRESSION Febrile illness on admission, source; had N/V on admission, and RUL opacity, possibly aspiration - Legionella Ag (+) - fevers better Has some redness on his L leg, which is now resolved RECOMMENDATION Change to Levaquin give 14 days D/C other Abx If remains stable, should be able to D/C this weekend and complete his Abx Rx Follow-up CXR in 4-6 weeks to document clearing of his PNA Thank you for this consultation Discussed Condition With D/W Dr Uriostegui Explained plan to the patient Jeri Marquez MD Jun 25, 2017 13:21
--- NOTE | 2017-06-25 13:56 | HHI.PR ---
Subjective Remarks Patient still complaining of feeling tired but no significant cough or short of breath, his left lower extremity significantly feels better less warm and less painful Objective Vitals Vital Signs Date Time Temp Pulse Resp B/P (MAP) Pulse Ox O2 Delivery O2 Flow Rate FiO2 06/25/17 12:00 97.2 61 17 156/74 (101) 94 06/25/17 08:00 96.8 65 17 156/73 (100) 92 06/25/17 05:05 18 06/25/17 04:00 97.3 63 20 147/74 (98) 92 06/25/17 01:40 18 06/25/17 00:48 18 06/25/17 00:00 98.5 54 19 150/68 (95) 93 06/24/17 20:00 96.1 57 20 174/81 (112) 96 I/O 06/24/17 06/24/17 06/24/17 06/25/17 06/25/17 06/25/17 07:00 15:00 23:00 07:00 15:00 23:00 Intake Total 756 ml 616 ml 756 ml 120 ml 104 ml Output Total 350 ml 425 ml 600 ml Balance 406 ml 616 ml 331 ml -480 ml 104 ml Intake Oral 240 ml 240 ml 120 ml IV Total 516 ml 616 ml 516 ml 104 ml Output Urine Total 350 ml 425 ml 600 ml # Bowel Movements 0 0 Result Diagram: 06/25/17 0207 06/24/17 0907 Objective Remarks GENERAL: This is a well-nourished, well-developed patient, in no apparent distress. SKIN: No rashes, warm and dry HEAD: Atraumatic. Normocephalic. EYES: Pupils equal round and reactive. Extraocular motions intact. No scleral icterus. ENT: Nose without bleeding, or drainage, Airway patent. NECK: Trachea midline. Supple CARDIOVASCULAR: Regular rate and rhythm without murmurs, gallops, or rubs. RESPIRATORY: Fair air entry bilaterally. No wheezes, rales, or rhonchi. GASTROINTESTINAL: Abdomen soft, non-tender, nondistended. Positive bowel sounds MUSCULOSKELETAL: Left lower extremity with tenderness, redness and warmth, the marked redness looks better today NEUROLOGICAL: Awake and alert. Moves all extremity. Normal speech.no focal neurological deficit A/P Assessment and Plan Febrile illness max 103.6, then 100.4 with left shift without leukocytosis, chest x-ray showed right basilar haziness rule out pneumonia versus bilateral gastroenteritis versus cellulitis Suspect left lower extremity cellulitis Suspected bacteremia Thrombocytopenia, with mild increased PT and PTT> unknown reason possible underlying chronic ITP, rule out DIC Lactic acid acidosis> level today pending DVT prophylaxis, SCD due to thrombocytopenia Plan: Appreciate ID consultation: Change to Levaquin give 14 days D/C other Abx If remains stable, should be able to D/C this weekend and complete his Abx Rx Follow-up CXR in 4-6 weeks to document clearing of his PNA DC Vanco and Azactam, DC clindamycin iv, monitor blood culture no growth so far. Negative UA Monitor erythema and tenderness on the left lower extremity Will do workup for trauma cytopenia rule out DIC> fibrinogen, fibrin degradation level, d-dimer, CBC in a.m., Also check urine Legionella and pneumococcus antigen [facility] DVT prophylaxiswith SCD Discharge Planning Home with by mouth antibiotics in a.m. if all the workup is negative Ronna Uriostegui MD Jun 25, 2017 13:56
[2017-06-25] MEDS: LEVOFLOXACIN 750 MG TAB PO SCH (15:08)
[2017-06-25 16:00] VITALS: BP 146/77; PULSE 57; RESP 17; TEMP 97; O2SAT 91
[2017-06-25] MEDS: ONDANSETRON HCL 4 MG/2 ML VIAL IV PUSH PRN (16:46)
[2017-06-25 20:00] VITALS: BP 124/74; PULSE 62; RESP 17; TEMP 98.2; O2SAT 95
[2017-06-25] MEDS: PRAVASTATIN SOD 40 MG TAB PO SCH (22:07)
[2017-06-25] MEDS: PRAMIPEXOLE DIHYDROCHLORIDE 0.25 MG TAB PO SCH (22:07)
[2017-06-26] VITALS (8 sets, daily range): BP systolic 124–162; BP diastolic 59–79; PULSE 55–66; RESP 17–20; TEMP 95.9–98.2; O2SAT 90–96
[2017-06-26] MEDS: oxyCODONE/ACETAMINOPHEN 10 MG/325 MG TAB PO PRN ×4 (01:54→20:10)
[2017-06-26] MEDS: MORPHINE SULFATE 30 MG TAB PO SCH ×3 (05:00→20:08)
[2017-06-26] MEDS: MORPHINE SULFATE 4 MG/ML INJ IV PUSH PRN (05:09)
[2017-06-26] MEDS: glipiZIDE 10 MG TAB PO SCH ×3 (08:29→16:49)
[2017-06-26] MEDS: FUROSEMIDE 20 MG TAB PO SCH (08:29)
[2017-06-26] MEDS: LACTOBACILLUS ACIDOPHILUS TAB PO SCH ×3 (08:29→16:49)
[2017-06-26] MEDS: SUCRALFATE 1 GM TAB PO SCH ×4 (08:29→20:07)
[2017-06-26] MEDS: FLUoxetine HCL 20 MG CAP PO SCH ×2 (08:29→20:09)
[2017-06-26] MEDS: SODIUM CHLORIDE 0.9% FLUSH 10 ML FLUSH IV FLUSH SCH ×2 (08:31→20:14)
--- NOTE | 2017-06-26 10:40 | HHI.PR ---
Subjective Remarks in no acute distress. but he says that he's not feeling good because of some nausea and upset stomach. no fever. Objective Vitals Vital Signs Date Time Temp Pulse Resp B/P (MAP) Pulse Ox O2 Delivery O2 Flow Rate FiO2 06/26/17 08:00 65 06/26/17 08:00 96.8 62 17 162/77 (105) 90 06/26/17 04:45 66 06/26/17 04:00 145/72 (96) 06/26/17 00:00 98.0 61 17 130/72 (91) 96 06/25/17 20:00 98.2 62 17 124/74 (91) 95 06/25/17 16:00 97.0 57 17 146/77 (100) 91 06/25/17 12:00 97.2 61 17 156/74 (101) 94 I/O 06/25/17 06/25/17 06/25/17 06/26/17 06/26/17 06/26/17 07:00 15:00 23:00 07:00 15:00 23:00 Intake Total 120 ml 104 ml 1000 ml 240 ml Output Total 600 ml 800 ml 600 ml Balance -480 ml 104 ml 200 ml -360 ml Intake Oral 120 ml 600 ml 240 ml IV Total 104 ml 400 ml Output Urine Total 600 ml 800 ml 600 ml # Bowel Movements 0 0 Result Diagram: 06/25/17 0207 06/24/17 0907 Imaging Last Impressions Lower Extremity Ultrasound 06/25/17 0000 Signed Impressions: Service Date/Time: Sunday, June 25, 2017 11:55 - CONCLUSION: Normal examination. Rusty Lane MD Chest X-Ray 06/24/17 0000 Signed Impressions: Service Date/Time: June 21:20 - CONCLUSION: Still faintly opacified right upper lobe. Rusty Garcia MD Head CT 06/22/17 1926 Signed Impressions: Service Date/Time: Thursday, June 22, 2017 20:46 - CONCLUSION: Negative noncontrast head CT. Rusty Garcia MD Objective Remarks GENERAL: This is a well-nourished, well-developed patient, in no apparent distress. CARDIOVASCULAR: Regular rate and regular rhythm without murmurs, gallops, or rubs. RESPIRATORY: Clear to auscultation. Breath sounds equal bilaterally. No wheezes , rales, or rhonchi. GASTROINTESTINAL: Abdomen soft, non-tender, nondistended. Normal, active bowel sounds MUSCULOSKELETAL: Extremities without clubbing, cyanosis, or edema. NEURO: Alert & Oriented x4 to person, place, time, situation. Moves all ext x4 Medications and IVs Current Medications Sodium Chloride 500 ml @ 500 mls/hr BOLUS ONCE IV Last administered on 19:45; Start 06/22/17 at 19:30; Stop 06/22/17 at 20:29; Status DC Ondansetron HCl (Zofran Inj) 4 mg ONCE ONCE IV PUSH Last administered on 19:46; Start 06/22/17 at 19:30; Stop 06/22/17 at 19:31; Status DC Aztreonam 2000 mg/ Sodium Chloride 100 ml @ 200 mls/hr ONCE ONCE IV Last administered on 06/22/17 22:38; Start 06/22/17 at 20:45; Stop 06/22/17 at 21:14 ; Status DC Metronidazole 100 ml @ 100 mls/hr ONCE ONCE IV Last administered on 21:18; Start 06/22/17 at 20:45; Stop 06/22/17 at 21:46; Status DC Vancomycin HCl 1000 mg/Sodium Chloride 250 ml @ 250 mls/hr ONCE ONCE IV Last administered on 06/22/17 21:35; Start 06/22/17 at 20:45; Stop 06/22/17 at 21:46 ; Status DC Sodium Chloride 1,000 ml @ 1,000 mls/hr Q1H ONCE IV Last administered on 22:40; Start 06/22/17 at 21:15; Stop 06/22/17 at 22:14; Status DC Acetaminophen (Tylenol) 650 mg ONCE ONCE PO Last administered on 06/22/17 21: 34; Start 06/22/17 at 21:15; Stop 06/22/17 at 21:16; Status DC Lactulose (Lactulose Liq) 30 ml ONCE ONCE PO Last administered on 06/22/17 21 :34; Start 06/22/17 at 21:30; Stop 06/22/17 at 21:31; Status DC Sodium Chloride (NS Flush) 2 ml UNSCH PRN IV FLUSH FLUSH AFTER USING IV ACCESS Last administered on 06/23/17 12:44; Start 06/22/17 at 21:30 Sodium Chloride (NS Flush) 2 ml BID IV FLUSH Last administered on 06/26/17 08: 31; Start 06/23/17 at 09:00 Naloxone HCl (Narcan Inj) 0.4 mg UNSCH PRN IV SEE LABEL COMMENTS; Start at 21:30 Pharmacy Profile Note 0 ml @ 0 mls/hr UNSCH OTHER ; Start 06/22/17 at 21:30; Stop 06/24/17 at 18:56; Status DC Aztreonam 2000 mg/ Sodium Chloride 100 ml @ 200 mls/hr Q12H IV Last administered on 06/24/17 08:03; Start 06/23/17 at 09:00; Stop 06/24/17 at 18:56 ; Status DC Vancomycin HCl 1500 mg/Sodium Chloride 515 ml @ 257.5 mls/ hr ONCE ONCE IV Last administered on 06/23/17 01:03; Start 06/22/17 at 22:00; Stop 06/22/17 at 23:59; Status DC Vancomycin HCl 1600 mg/Sodium Chloride 516 ml @ 250 mls/hr Q8H IV Last administered on 06/25/17 13:30; Start 06/23/17 at 06:00; Stop 06/25/17 at 13:54 ; Status DC Morphine Sulfate (Morphine Inj) 2 mg Q3H PRN IV PUSH pain >5; Start 06/23/17 at 00:00; Stop 06/23/17 at 00:45; Status DC Morphine Sulfate (Morphine Inj) 2 mg Q3H PRN IV PUSH pain >5 Last administered on 06/26/17 05:09; Start 06/23/17 at 01:00 Acetaminophen (Tylenol) 650 mg Q4H PRN PO fever >101; Start 06/23/17 at 01:00 Ondansetron HCl (Zofran Inj) 4 mg Q6HR PRN IV PUSH n/v Last administered on 16:46; Start 06/23/17 at 10:45 Sodium Chloride 1,000 ml @ 60 mls/hr [id number] IV Last administered on 18:10; Start 06/23/17 at 17:00; Stop 06/24/17 at 01:19; Status DC Pharmacy Profile Note 0 ml @ 0 mls/hr UNSCH OTHER ; Start 06/23/17 at 17:15; Stop 06/23/17 at 17:54; Status DC Fluoxetine HCl (PROzac) 20 mg BID PO Last administered on 06/26/17 08:29; Start 06/23/17 at 21:00 Oxycodone/ Acetaminophen (Percocet 10-325 Mg) 1 tab Q4H PRN PO PAIN Last administered on 06/26/17 08:29; Start 06/23/17 at 20:30 Sucralfate (Carafate) 1 gm QID PO Last administered on 06/26/17 08:29; Start 06/23/17 at 21:00 Pramipexole Dihydrochloride (Mirapex) 0.5 mg HS PO Last administered on 22:07; Start 06/23/17 at 21:00 Miscellaneous Information SPECIFIC LAB TO BE EVA... ONCE ONCE .XX Last administered on 06/24/17 13:45; Start 06/24/17 at 13:45; Stop 06/24/17 at 13:46 ; Status DC Heparin Sodium (Porcine) (Heparin Central Flush) 500 units ONCE ONCE IV FLUSH ; Start 06/24/17 at 18:15; Stop 06/24/17 at 18:15; Status DC Furosemide (Lasix) 20 mg DAILY PO Last administered on 06/26/17 08:29; Start 06/25/17 at 09:00 Glipizide (Glucotrol) 10 mg TIDAC PO Last administered on 06/26/17 08:29; Start 06/25/17 at 08:00 Pravastatin Sodium (Pravachol) 40 mg HS PO Last administered on 06/25/17 22:07 ; Start 06/24/17 at 21:00 Morphine Sulfate (Msir) 30 mg Q8H PO Last administered on 06/26/17 05:00; Start 06/24/17 at 20:00 Clindamycin Phosphate 600 mg/ Sodium Chloride 104 ml @ 208 mls/hr Q6H IV Last administered on 06/25/17 09:27; Start 06/24/17 at 21:00; Stop 06/25/17 at 13:54 ; Status DC Lactobacillus Acidophilus (Lactinex) 1 tab TID PO Last administered on 08:29; Start 06/25/17 at 09:00 Levofloxacin (Levaquin) 750 mg Q24H PO Last administered on 06/25/17 15:08; Start 06/25/17 at 14:00; Stop 07/09/17 at 13:59 A/P Assessment and Plan Febrile illness max 103.6, then 100.4 with left shift without leukocytosis, chest x-ray showed right basilar haziness rule out pneumonia versus versus cellulitis Suspect left lower extremity cellulitis Suspected bacteremia continue po levaquin. monitor temps. ID f/u appreciated. CXR in 4-6 weeks. nausea/ will continue with antiemetics as needed, Thrombocytopenia, - stable- f/u as outpatient. Lactic acid acidosis-resolved DVT prophylaxis, SCD due to thrombocytopenia Discharge Planning possible dc home tomorrow if stable. Calvin Liz MD Jun 26, 2017 10:40
[2017-06-26] MEDS: ACETAMINOPHEN 325 MG TAB PO PRN (11:39)
[2017-06-26] MEDS: LEVOFLOXACIN 750 MG TAB PO SCH (14:00)
[2017-06-26] MEDS: PRAVASTATIN SOD 40 MG TAB PO SCH (20:08)
[2017-06-26] MEDS: PRAMIPEXOLE DIHYDROCHLORIDE 0.25 MG TAB PO SCH (20:08)
[2017-06-27 00:02] VITALS: PULSE 60
[2017-06-27] MEDS: oxyCODONE/ACETAMINOPHEN 10 MG/325 MG TAB PO PRN ×3 (01:22→13:22)
[2017-06-27] MEDS: MORPHINE SULFATE 30 MG TAB PO SCH ×2 (03:44→11:37)
[2017-06-27 04:00] VITALS: BP 160/71; PULSE 62; RESP 21; TEMP 97.2; O2SAT 97
[2017-06-27 06:36] VITALS: PULSE 60
[2017-06-27 07:49] LABS: BICARBONATE 28.1 MEQ/L (21.0-32.0); MAGNESIUM 1.8 MG/DL (1.5-2.5)
[2017-06-27] MEDS: FUROSEMIDE 20 MG TAB PO SCH (07:57)
[2017-06-27] MEDS: LACTOBACILLUS ACIDOPHILUS TAB PO SCH ×2 (07:57→11:37)
[2017-06-27] MEDS: glipiZIDE 10 MG TAB PO SCH ×2 (07:57→11:38)
[2017-06-27] MEDS: FLUoxetine HCL 20 MG CAP PO SCH (07:57)
[2017-06-27] MEDS: SODIUM CHLORIDE 0.9% FLUSH 10 ML FLUSH IV FLUSH SCH (07:58)
[2017-06-27] MEDS: SUCRALFATE 1 GM TAB PO SCH ×2 (07:58→11:37)
[2017-06-27 08:00] VITALS: BP 169/79; PULSE 60; RESP 17; TEMP 96.9; O2SAT 95
[2017-06-27] MEDS: ACETAMINOPHEN 325 MG TAB PO PRN (08:36)
--- NOTE | 2017-06-27 09:43 | HHI.PR ---
Subjective Remarks resting comfortably with no distress. looks and feels better today. headache and nausea is better. no fever. wants to go home. Objective Vitals Vital Signs Date Time Temp Pulse Resp B/P (MAP) Pulse Ox O2 Delivery O2 Flow Rate FiO2 06/27/17 08:00 96.9 60 17 169/79 (109) 95 06/27/17 06:36 60 06/27/17 04:00 97.2 62 21 160/71 (100) 97 06/27/17 00:02 60 06/26/17 23:00 97.2 64 20 129/75 (93) 94 06/26/17 20:00 98.2 59 20 162/79 (106) 96 06/26/17 16:00 96.4 55 17 124/59 (80) 95 06/26/17 12:00 95.9 66 18 145/69 (94) 96 I/O 06/26/17 06/26/17 06/26/17 06/27/17 06/27/17 06/27/17 07:00 15:00 23:00 07:00 15:00 23:00 Intake Total 240 ml 740 ml 240 ml Output Total 600 ml 600 ml Balance -360 ml 740 ml -360 ml Intake Oral 240 ml 740 ml 240 ml Output Urine Total 600 ml 600 ml # Voids 5 1 # Bowel Movements 1 0 Result Diagram: 06/25/17 0207 06/27/17 0707 Imaging Last Impressions Lower Extremity Ultrasound 06/25/17 0000 Signed Impressions: Service Date/Time: Sunday, June 25, 2017 11:55 - CONCLUSION: Normal examination. Rusty Lane MD Chest X-Ray 06/24/17 0000 Signed Impressions: Service Date/Time: June 21:20 - CONCLUSION: Still faintly opacified right upper lobe. Rusty Garcia MD Head CT 06/22/17 1926 Signed Impressions: Service Date/Time: Thursday, June 22, 2017 20:46 - CONCLUSION: Negative noncontrast head CT. Rusty Garcia MD Objective Remarks GENERAL: This is a well-nourished, well-developed patient, in no apparent distress. CARDIOVASCULAR: Regular rate and regular rhythm without murmurs, gallops, or rubs. RESPIRATORY: Clear to auscultation. Breath sounds equal bilaterally. No wheezes , rales, or rhonchi. GASTROINTESTINAL: Abdomen soft, non-tender, nondistended. Normal, active bowel sounds MUSCULOSKELETAL: Extremities without clubbing, cyanosis, or edema. NEURO: Alert & Oriented x4 to person, place, time, situation. Moves all ext x4 Procedures none Medications and IVs Current Medications Sodium Chloride 500 ml @ 500 mls/hr BOLUS ONCE IV Last administered on 19:45; Start 06/22/17 at 19:30; Stop 06/22/17 at 20:29; Status DC Ondansetron HCl (Zofran Inj) 4 mg ONCE ONCE IV PUSH Last administered on 19:46; Start 06/22/17 at 19:30; Stop 06/22/17 at 19:31; Status DC Aztreonam 2000 mg/ Sodium Chloride 100 ml @ 200 mls/hr ONCE ONCE IV Last administered on 06/22/17 22:38; Start 06/22/17 at 20:45; Stop 06/22/17 at 21:14 ; Status DC Metronidazole 100 ml @ 100 mls/hr ONCE ONCE IV Last administered on 21:18; Start 06/22/17 at 20:45; Stop 06/22/17 at 21:46; Status DC Vancomycin HCl 1000 mg/Sodium Chloride 250 ml @ 250 mls/hr ONCE ONCE IV Last administered on 06/22/17 21:35; Start 06/22/17 at 20:45; Stop 06/22/17 at 21:46 ; Status DC Sodium Chloride 1,000 ml @ 1,000 mls/hr Q1H ONCE IV Last administered on 22:40; Start 06/22/17 at 21:15; Stop 06/22/17 at 22:14; Status DC Acetaminophen (Tylenol) 650 mg ONCE ONCE PO Last administered on 06/22/17 21: 34; Start 06/22/17 at 21:15; Stop 06/22/17 at 21:16; Status DC Lactulose (Lactulose Liq) 30 ml ONCE ONCE PO Last administered on 06/22/17 21 :34; Start 06/22/17 at 21:30; Stop 06/22/17 at 21:31; Status DC Sodium Chloride (NS Flush) 2 ml UNSCH PRN IV FLUSH FLUSH AFTER USING IV ACCESS Last administered on 06/23/17 12:44; Start 06/22/17 at 21:30 Sodium Chloride (NS Flush) 2 ml BID IV FLUSH Last administered on 06/27/17 07: 58; Start 06/23/17 at 09:00 Naloxone HCl (Narcan Inj) 0.4 mg UNSCH PRN IV SEE LABEL COMMENTS; Start at 21:30 Pharmacy Profile Note 0 ml @ 0 mls/hr UNSCH OTHER ; Start 06/22/17 at 21:30; Stop 06/24/17 at 18:56; Status DC Aztreonam 2000 mg/ Sodium Chloride 100 ml @ 200 mls/hr Q12H IV Last administered on 06/24/17 08:03; Start 06/23/17 at 09:00; Stop 06/24/17 at 18:56 ; Status DC Vancomycin HCl 1500 mg/Sodium Chloride 515 ml @ 257.5 mls/ hr ONCE ONCE IV Last administered on 06/23/17 01:03; Start 06/22/17 at 22:00; Stop 06/22/17 at 23:59; Status DC Vancomycin HCl 1600 mg/Sodium Chloride 516 ml @ 250 mls/hr Q8H IV Last administered on 06/25/17 13:30; Start 06/23/17 at 06:00; Stop 06/25/17 at 13:54 ; Status DC Morphine Sulfate (Morphine Inj) 2 mg Q3H PRN IV PUSH pain >5; Start 06/23/17 at 00:00; Stop 06/23/17 at 00:45; Status DC Morphine Sulfate (Morphine Inj) 2 mg Q3H PRN IV PUSH pain >5 Last administered on 06/26/17 05:09; Start 06/23/17 at 01:00 Acetaminophen (Tylenol) 650 mg Q4H PRN PO fever >101; Start 06/23/17 at 01:00 Ondansetron HCl (Zofran Inj) 4 mg Q6HR PRN IV PUSH n/v Last administered on 16:46; Start 06/23/17 at 10:45 Sodium Chloride 1,000 ml @ 60 mls/hr [id number] IV Last administered on 18:10; Start 06/23/17 at 17:00; Stop 06/24/17 at 01:19; Status DC Pharmacy Profile Note 0 ml @ 0 mls/hr UNSCH OTHER ; Start 06/23/17 at 17:15; Stop 06/23/17 at 17:54; Status DC Fluoxetine HCl (PROzac) 20 mg BID PO Last administered on 06/27/17 07:57; Start 06/23/17 at 21:00 Oxycodone/ Acetaminophen (Percocet 10-325 Mg) 1 tab Q4H PRN PO PAIN Last administered on 06/26/17 14:00; Start 06/23/17 at 20:30; Stop 06/26/17 at 16:05 ; Status DC Sucralfate (Carafate) 1 gm QID PO Last administered on 06/27/17 07:58; Start 06/23/17 at 21:00 Pramipexole Dihydrochloride (Mirapex) 0.5 mg HS PO Last administered on 20:08; Start 06/23/17 at 21:00 Miscellaneous Information SPECIFIC LAB TO BE EVA... ONCE ONCE .XX Last administered on 06/24/17 13:45; Start 06/24/17 at 13:45; Stop 06/24/17 at 13:46 ; Status DC Heparin Sodium (Porcine) (Heparin Central Flush) 500 units ONCE ONCE IV FLUSH ; Start 06/24/17 at 18:15; Stop 06/24/17 at 18:15; Status DC Furosemide (Lasix) 20 mg DAILY PO Last administered on 06/27/17 07:57; Start 06/25/17 at 09:00 Glipizide (Glucotrol) 10 mg TIDAC PO Last administered on 06/27/17 07:57; Start 06/25/17 at 08:00 Pravastatin Sodium (Pravachol) 40 mg HS PO Last administered on 06/26/17 20:08 ; Start 06/24/17 at 21:00 Morphine Sulfate (Msir) 30 mg Q8H PO Last administered on 06/27/17 03:44; Start 06/24/17 at 20:00 Clindamycin Phosphate 600 mg/ Sodium Chloride 104 ml @ 208 mls/hr Q6H IV Last administered on 06/25/17 09:27; Start 06/24/17 at 21:00; Stop 06/25/17 at 13:54 ; Status DC Lactobacillus Acidophilus (Lactinex) 1 tab TID PO Last administered on 07:57; Start 06/25/17 at 09:00 Levofloxacin (Levaquin) 750 mg Q24H PO Last administered on 06/26/17 14:00; Start 06/25/17 at 14:00; Stop 07/09/17 at 13:59 Acetaminophen (Tylenol) 650 mg Q4H PRN PO headache Last administered on 08:36; Start 06/26/17 at 11:00 Oxycodone/ Acetaminophen (Percocet 10-325 Mg) 1 tab Q4H PRN PO PAIN SCALE 1 TO 5 Last administered on 06/27/17 07:57; Start 06/26/17 at 18:00 A/P Assessment and Plan A/P Febrile illness max 103.6, then 100.4 with left shift without leukocytosis, chest x-ray showed right basilar haziness rule out pneumonia continue po levaquin. monitor temps. ID f/u appreciated. CXR in 4-6 weeks. nausea; resolved. nonsustained V-tach- will replace potassium- continue to monitor. Thrombocytopenia, - stable- f/u as outpatient. Lactic acid acidosis-resolved DVT prophylaxis, SCD due to thrombocytopenia Discharge Planning dc home later today if no further V-tach episodes with improved hypokalemia. f/u with pcp. see med list. d/w the patient. Calvin Liz MD Jun 27, 2017 09:43
[2017-06-27] MEDS ORDERED: LACT PO (09:46)
[2017-06-27] MEDS ORDERED: LEVA750T9 PO (09:46)
[2017-06-27] MEDS ORDERED: POTA-163 PO (09:47)
--- NOTE | 2017-06-27 09:47 | HHI.DCPOC ---
Discharge Care Plan Diagnosis: (1) Pneumonia Additional Problems lung infection. Goals to Promote Your Health * To prevent worsening of your condition and complications * To maintain your health at the optimal level Directions to Meet Your Goals Take your medications as prescribed Follow your dietary instruction Follow activity as directed Keep your appointments as scheduled Take your immunizations and boosters as scheduled If your symptoms worsen call your PCP, if no PCP go to Urgent Care Center or Emergency Room Smoking is Dangerous to Your Health. Avoid second hand smoke Call the 24-hour hour crisis hotline for domestic abuse at Calvin Liz MD Jun 27, 2017 09:47
--- NOTE | 2017-06-27 09:48 | HHI.DS ---
Discharge Summary Admission Date Jun 22, 2017 at 21:26 Discharge Date: Jun 27, 2017 Admitting Diagnosis Febrile Illness, hepatic encephalopathy, sepsis, pneumonia (1) Pneumonia ICD Code: J18.9 - Pneumonia, unspecified organism Status: Acute Procedures none Brief History - From Admission History from patient, physician to medication, and review of medical records. Patient reports that he . He stated he was having some nausea and vomiting as well. He called his friend because of this. When the friend arrived, patient was having active vomiting and also did have diarrhea about once or twice. The friend got worried and therefore called 911. He states that he did not have any urinary burning or pain on urination. Denies any blood in his urine or stool. He reports the diarrhea was just once or twice and only today. Not several days. He denies any chest pain/palpitations/shortness of breath/dizziness/syncopal episodes. In the emergency room, it was initially thought that patient may have, nontoxic poisoning. However his ABG proved otherwise. Patient states that he did have carbon monoxide generator in the outdoors and open air. CBC/BMP: 06/25/17 0207 06/27/17 0707 Significant Findings Laboratory Tests Test 06/24/17 13:45 06/25/17 02:07 06/27/17 07:07 Vancomycin Level Trough 13.3 MCG/ML (5.0-10.0) Red Blood Count 3.98 MIL/MM3 (4.50-5.90) Hemoglobin 12.2 GM/DL (13.0-17.0) Hematocrit 36.6 % (39.0-51.0) Platelet Count 89 TH/MM3 (150-450) Monocytes (%) (Auto) 9.3 % (0.0-8.0) Eosinophils (%) (Auto) 4.2 % (0.0-4.0) Platelet Estimate LOW (NORMAL) D-Dimer Quantitative (PE/DVT) 0.91 MG/L FEU (0.00-0.50) Blood Urea Nitrogen 3 MG/DL (7-18) Creatinine 0.44 MG/DL (0.60-1.30) Random Glucose 132 MG/DL (74-106) Calcium Level 8.1 MG/DL (8.5-10.1) Potassium Level 3.0 MEQ/L (3.5-5.1) Imaging Last Impressions Lower Extremity Ultrasound 06/25/17 0000 Signed Impressions: Service Date/Time: Sunday, June 25, 2017 11:55 - CONCLUSION: Normal examination. Rusty Lane MD Chest X-Ray 06/24/17 0000 Signed Impressions: Service Date/Time: June 21:20 - CONCLUSION: Still faintly opacified right upper lobe. Rusty Garcia MD Head CT 06/22/17 1926 Signed Impressions: Service Date/Time: Thursday, June 22, 2017 20:46 - CONCLUSION: Negative noncontrast head CT. Rusty Garcia MD PE at Discharge GENERAL: This is a well-nourished, well-developed patient, in no apparent distress. CARDIOVASCULAR: Regular rate and regular rhythm without murmurs, gallops, or rubs. RESPIRATORY: Clear to auscultation. Breath sounds equal bilaterally. No wheezes , rales, or rhonchi. GASTROINTESTINAL: Abdomen soft, non-tender, nondistended. Normal, active bowel sounds MUSCULOSKELETAL: Extremities without clubbing, cyanosis, or edema. NEURO: Alert & Oriented x4 to person, place, time, situation. Moves all ext x4 Hospital Course Febrile illness max 103.6, then 100.4 with left shift without leukocytosis, chest x-ray showed right basilar haziness rule out pneumonia continue po levaquin. monitor temps. ID f/u appreciated. CXR in 4-6 weeks. nausea; resolved. Thrombocytopenia, - stable- f/u as outpatient. Lactic acid acidosis-resolved DVT prophylaxis, SCD due to thrombocytopenia Pt Condition on Discharge: Good Discharge Disposition: Discharge Home Discharge Time: <= 30 minutes Discharge Instructions DIET: Follow Instructions for: Heart Healthy Diet, Diabetic Diet Activities you can perform: Regular-No Restrictions Follow up Referrals: PCP Follow-up New Medications: Potassium Chloride ER (Potassium Chloride ER) 10 Meq Cap 10 MEQ PO DAILY for Electrolyte Replacement, #30 CAP 0 Refills Lactobacillus Acidophilus (Acidophilus/l-Sporogenes) 35 Million Cell-25 Million Cell Tab 1 TAB PO TID for probiotic for 14 Days, TAB 0 Refills Levofloxacin (Levaquin) 750 Mg Tablet 750 MG PO Q24H for infection for 14 Days, #14 TAB 0 Refills Continued Medications: Fluoxetine (Fluoxetine) 20 Mg Capsule 20 MG PO BID, #30 CAP 0 Refills Furosemide (Furosemide) 20 Mg Tab 20 MG PO DAILY, #30 TAB 0 Refills Glipizide (Glipizide) 10 Mg Tab 10 MG PO TIDAC for Blood Sugar Management, #60 TAB 0 Refills Take 30 minutes before a meal Metoprolol Tartrate (Metoprolol Tartrate) 25 Mg Tab 25 MG PO BID, #60 TAB 0 Refills Morphine ER (Morphine ER) 30 Mg Tab 30 MG PO TID for Pain Management, TAB 0 Refills Nitroglycerin SL (Nitrostat SL) 0.4 Mg Subl 0.4 MG SL DIRECTED PRN for CHEST PAIN, #100 TAB.SL 0 Refills 1 tablet under the tongue as needed for chest pain. Repeat every 5 minutes for a total of 3 DOSES or call 911 if NO relief. Oxycodone-Acetaminophen (Percocet) 10-325 mg Tab 1 TAB PO Q4H PRN for PAIN, TAB 0 Refills Pramipexole (Pramipexole) 0.5 Mg Tab 0.5 MG PO HS for Parkinson Disease Mgmt, #30 TAB 0 Refills Pravastatin (Pravastatin) 40 Mg Tab 40 MG PO HS for Cholesterol Management, #30 TAB 0 Refills Sucralfate (Sucralfate) 1 Gram Tab 1 GM PO QID for Duodenal ulcer, #120 TAB 0 Refills on empty stomach [Carafate] () [Dilatin] () Calvin Liz MD Jun 27, 2017 09:48
[2017-06-27] MEDS ORDERED: POTA10CA PO (09:59)
[2017-06-27] MEDS ORDERED: POTASSIUM CHLORIDE 10 MEQ CONTROLLED RELEASE TAB PO ONE ×2 (10:00→13:00)
[2017-06-27] MEDS ORDERED: METOPROLOL TARTRATE 25 MG TAB PO SCH (11:00)
[2017-06-27 12:00] VITALS: BP 148/70; PULSE 58; RESP 18; TEMP 96.3; O2SAT 95
[2017-06-27] MEDS: LEVOFLOXACIN 750 MG TAB PO SCH (13:21)
[2017-06-27 16:00] VITALS: BP 151/79; PULSE 53; RESP 17; TEMP 96.4; O2SAT 95
== END 2017-06-27 18:23 | disposition home or self-care (01) | DRG 602 ==
LOC: NEPC 19:06 → EDBD 21:26 → NEDA 21:26 → N07B 22:55
PROVIDERS: ADMIT Internal Medicine; ATTEND Internal Medicine
DX: L03.116 Cellulitis of left lower limb (principal); J18.9 Pneumonia, unspecified organism; I47.2 Ventricular tachycardia; E87.2 Acidosis; E11.40 Type 2 diabetes mellitus with diabetic neuropathy, unspecified; D69.6 Thrombocytopenia, unspecified; I48.91 Unspecified atrial fibrillation; K52.9 Noninfective gastroenteritis and colitis, unspecified; K72.90 Hepatic failure, unspecified without coma; I45.10 Unspecified right bundle-branch block; I25.10 Atherosclerotic heart disease of native coronary artery without angina pectoris; I10 Essential (primary) hypertension; E78.5 Hyperlipidemia, unspecified; M54.9 Dorsalgia, unspecified; G89.29 Other chronic pain; Z95.1 Presence of aortocoronary bypass graft; Z88.0 Allergy status to penicillin; Z79.891 Long term (current) use of opiate analgesic
CPT/HCPCS: 36600; 70450; 71010; 71020; 76937; 80048; 80053; 80202; 80307; 81001; 82140; 82550; 82805; 82948; 83605; 83690; 83735; 83880; 84100; 84132; 84443; 84484; 85025; 85379; 85384; 85610; 85670; 85730; 86140; 87040; 87449; 93005; 93971; 96374; 96375; J2270; J2405; J3370; J7030; J7040; J7050